=== PATIENT | female | born 1975 | race Caucasian/White ===

== ENCOUNTER 2023-02-03 12:20 | Emergency (ER) | payer OTHER ==
[~2023-02-03] VITALS: Ht 167.6 cm; Wt 79.4 kg
[~2023-02-03 12:20] MED LIST: CYCL10 PO; LIDO700A20 TOP
[2023-02-03 12:33] VITALS: BP 129/84
[2023-02-03] MEDS ORDERED: AMOCLA875 PO (13:03)
== END 2023-02-03 13:34 | disposition home or self-care (01) ==
LOC: ER 12:20
DX: S81.832A Puncture wound without foreign body, left lower leg, initial encounter (principal); F17.210 Nicotine dependence, cigarettes, uncomplicated; W54.0XXA Bitten by dog, initial encounter; Y99.0 Civilian activity done for income or pay; Z23 Encounter for immunization; Z88.6 Allergy status to analgesic agent; Z88.8 Allergy status to other drugs, medicaments and biological substances; Z79.899 Other long term (current) drug therapy
CPT/HCPCS: 90471; 90714; 90715; 99283-25